=== PATIENT | male | born 1985 | race African-American/Black ===

== ENCOUNTER 2019-09-22 18:43 | Emergency (ER) | payer SELFPAY ==
[~2019-09-22] VITALS: Ht 185.4 cm; Wt 83.0 kg
[2019-09-22 18:45] VITALS: BP 131/69
[2019-09-22] MEDS ORDERED: DOCU-286 PO (19:02)
== END 2019-09-22 18:56 | disposition left against medical advice (07) ==
LOC: ER 18:43
DX: Z53.21 Procedure and treatment not carried out due to patient leaving prior to being seen by health care provider (principal); R07.89 Other chest pain
CPT/HCPCS: 82962